=== PATIENT | female | born 1995 | race African-American/Black ===

== ENCOUNTER 2019-05-20 16:14 | Emergency (ER) | payer MEDICAID ==
[~2019-05-20] VITALS: Ht 167.6 cm; Wt 54.4 kg
[2019-05-20] MEDS ORDERED: OMEPRAZOLE20 M2 ORAL (16:25)
[2019-05-20] MEDS ORDERED: NORCO 5-325 TA1 EACH ORAL (16:25)
--- NOTE | 2019-05-20 16:38 | NUR ---
ED Nurse Note: came in with mother due to sharp epigastric pain with nausea x4 days. Pt reports that she went to [place] ED yesterday and pain remains after prescribed norco and ameprzole.
[2019-05-20 16:45] VITALS: BP 121/81
[2019-05-20 16:52] LABS: EOSINOPHILS % (AUTO) 1.7 % (0.0-3.0); HEMATOCRIT 35.7 % (37.0-47.0); HEMOGLOBIN 12.5 G/DL (12.0-16.0); LYMPHOCYTES % (AUTO) 18.3 % (20.0-45.0); MEAN CORPUSCULAR VOLUME 88 FL (80-99); MONOCYTES % (AUTO) 9.2 % (1.0-10.0); NEUTROPHILS % (AUTO) 69.8 % (45.0-75.0); PLATELET COUNT 183 K/UL (150-450); RED BLOOD COUNT 4.05 M/UL (4.20-5.40); RED CELL DISTRIBUTION WIDTH 10.8 % (11.6-14.8); WHITE BLOOD COUNT 7.7 K/UL (4.8-10.8)
[2019-05-20 16:55] LABS: APPEARANCE,URINE CLEAR; BILIRUBIN, URINE NEGATIVE (NEGATIVE); COLOR,URINE PALE YELLOW; GLUCOSE, URINE (UA) NEGATIVE (NEGATIVE); KETONES,URINE 4+ (NEGATIVE); LEUKOCYTE ESTERASE ,URINE NEGATIVE (NEGATIVE); NITRITE,URINE NEGATIVE (NEGATIVE); PH,URINE 6.5 (4.5-8.0); PROTEIN,URINE NEGATIVE (NEGATIVE); UROBILINOGEN,URINE NORMAL MG/DL (0.0-1.0)
[2019-05-20] MEDS ORDERED: Ketorolac 30mg Inj IV ONE (17:00)
[2019-05-20 17:06] LABS: ANION GAP 12 mmol/L (5-15); BLOOD UREA NITROGEN 9 mg/dL (7-18); CALCIUM 9.6 MG/DL (8.5-10.1); CARBON DIOXIDE 26 MMOL/L (21-32); CHLORIDE 105 MMOL/L (98-107); CREATININE 0.5 MG/DL (0.55-1.30); POTASSIUM 4.2 MMOL/L (3.5-5.1); SODIUM 142 MMOL/L (136-145)
[2019-05-20 17:08] LABS: ALANINE AMINOTRANSFERASE 17 U/L (12-78); ALBUMIN 4.1 G/DL (3.4-5.0); ALKALINE PHOSPHATASE 45 U/L (46-116); ASPARTATE AMINO TRANSFERASE 16 U/L (15-37); BILIRUBIN,TOTAL 0.9 MG/DL (0.2-1.0)
--- NOTE | 2019-05-20 18:46 | Emergency Room Report ---
History of Present Illness General Chief Complaint: Abdominal Pain Source: Patient Present Illness HPI 23-year-old female presents to the emergency department complaining of persistent 7 out of 10 severity retrosternal chest pain x4 days. Patient reports that she was worked up at [place] recently and was discharged with omeprazole and [place] which have not helped her symptoms. Denies Palpitations, LOC, AMS, dizziness, Changes in Vision, Sensation, paresthesias, or a sudden severe headache. Allergies: Coded Allergies: No Known Allergies (Unverified , 05/20/19) Patient History Past Medical History: see triage record Past Surgical History: none Pertinent Family History: none Last Menstrual Period: 05/17/2019 Reviewed Nursing Documentation: PMH: Agreed; PSxH: Agreed Nursing Documentation-PMH Past Medical History: No Stated History Review of Systems All Other Systems: negative except mentioned in HPI Physical Exam Vital Signs Date Time Temp Pulse Resp B/P (MAP) Pulse Ox O2 Delivery O2 Flow Rate FiO2 05/20/19 16:19 98.2 82 15 121/81 (94) 98 Room Air Sp02 EP Interpretation: reviewed, normal General Appearance: no apparent distress, alert, GCS 15, non-toxic, thin Head: normocephalic, atraumatic Eyes: bilateral eye normal inspection, bilateral eye PERRL ENT: hearing grossly normal, normal voice Neck: full range of motion Respiratory: chest non-tender, lungs clear, normal breath sounds, no respiratory distress, no accessory muscle use, no wheezing, speaking full sentences Cardiovascular #1: regular rate, rhythm, no edema, normal capillary refill Gastrointestinal: normal bowel sounds, non tender, soft, non-distended, no guarding Rectal: deferred Musculoskeletal: back normal, gait/station normal, normal range of motion, non- tender Neurologic: alert, oriented x3, responsive, motor strength/tone normal, sensory intact, speech normal, grossly normal Psychiatric: judgement/insight normal Lymphatic: no adenopathy Medical Decision Making PA Attestation Dr. White is my supervising Physician whom patient management has been discussed with. Diagnostic Impression: Primary Impression: Chest pain in adult ER Course Pt. presents to the ED c/o [ ] Ddx considered but are not limited to [place], pneumonia, contusion, costochondritis , PE, ACS, Shoulder strain, Chest wall contusion. aortic dissection. Vital signs: are WNL, pt. is afebrile H&PE are most consistent with [ ] ORDERS: - EK bpm -CBC -CMP -CK-MB -Troponins CXR: ED INTERVENTIONS: - PT. placed on cardiac monitoring. DISCHARGE: At this time pt. is stable for d/c to home. Will provide printed patient care instructions, and any necessary prescriptions. Care plan and follow up instructions have been discussed with the patient prior to discharge. EKG Diagnostic Results EP Interpretation: Dr. White Rate: normal - 70bpm Rhythm: NSR ST Segments: no acute changes ASA given to the pt in ED: No PA Scribe Text Sarahi GARCIA-Ernesto Last Vital Signs Date Time Temp Pulse Resp B/P (MAP) Pulse Ox O2 Delivery O2 Flow Rate FiO2 05/20/19 17:02 98.2 05/20/19 16:45 82 15 Room Air 05/20/19 16:45 121/81 98 Disposition: HOME, SELF-CARE Condition: Stable Scripts Naproxen* (NAPROXEN*) 375 Mg Tablet. 375 MG ORAL TWICE A DAY for 7 Days, #14 TAB ! Do Not Start until you have finished/no longer taking colchicine Prov: Sarahi Irene 05/20/19 Colchicine (Colchicine) 0.6 Mg Capsule 0.6 MG PO DAILY for chest pain, #3 CAP Prov: Sarahi Irene 05/20/19 Referrals: [facility]ERR[facility] (PCP) Patient Instructions: Nonspecific Chest Pain, Pericarditis Additional Instructions: Take medications as directed. Follow up with a Primary Care Provider in 3-5 days, even if your symptoms have resolved. Return sooner to ED if new symptoms occur, or current symptoms become worse. - Please note that this Emergency Department Report was dictated using CH[employer] php developer technology software, occasionally this can lead to erroneous entry secondary to interpretation by the dictation equipment. Sarahi Irene May 20, 2019 18:46
--- NOTE | 2019-05-20 19:09 | NUR ---
HAND-OFF: Report given to JESUS Dye.
[2019-05-20] MEDS ORDERED: NAPROXEN375 M2 ORAL (19:49)
[2019-05-20] MEDS ORDERED: COLCHICINE0.6 M1 PO (19:49)
[2019-05-20 19:52] VITALS: BP 121/81
--- NOTE | 2019-05-20 19:52 | NUR ---
ED Nurse Note: Patient cleared for discharge, verbalized understanding of discharge instructions, ID band removed, IV removed. Patient is A&Ox4, ambulatory with steady gait. Patient departed with all belongings accompanied by her mother.
== END 2019-05-20 19:59 | disposition home or self-care (01) ==
LOC: EMR 16:44
DX: R07.9 Chest pain, unspecified (principal)
CPT/HCPCS: 36415; 80053; 81003; 81025; 82553; 83690; 84484; 85025; 85651; 86140; 93005; 96374; 99284; J1885

== ENCOUNTER 2019-05-22 16:43 | Emergency (ER) | payer MEDICAID ==
[~2019-05-22] VITALS: Ht 160 cm; Wt 54.4 kg
[~2019-05-22 16:43] MED LIST: COLCHICINE0.6 M1 PO; NAPROXEN375 M2 ORAL; NORCO 5-325 TA1 EACH ORAL; OMEPRAZOLE20 M2 ORAL
--- NOTE | 2019-05-22 17:08 | NUR ---
ED Nurse Note: PT WALKED IN TO ER TODAY FROM HOME. AOX4. PT C/O ONGOING UPPER MEDIAL ABDOMINAL PAIN, 04/25. PT WAS SEEN AT [facility] 2 DAYS AGO FOR THE SAME SYMPTOMS BUT RETURNS TODAY WITH SAME COMPLAINT. PT STATES SHE HAS BEEN PRESCRIBED NORCO AND OMEPRAZOLE BUT MEDS HAVE NOT RELIEVED SYMPTOMS. ON ASSESSMENT, ABDOMEN IS SOFT AND NONDISTENDED, NONTENDER TO PALPATION. ACTIVE BOWEL SOUNDS IN ALL QUADRANTS. PT DENIES NAUSEA, VOMITING, OR DIARRHEA.
[2019-05-22 17:11] VITALS: BP 112/78
[2019-05-22] MEDS ORDERED: Isovue-300 100ml vial INJ PRN (17:15)
[2019-05-22] MEDS ORDERED: Mylanta II UD 30ml ORAL ONE (17:15)
[2019-05-22] MEDS ORDERED: Lidocaine 2% Visc 15ml soln ORAL ONE (17:15)
[2019-05-22] MEDS ORDERED: Dicyclomine HCl 10mg/5ml oral soln ORAL ONE (17:15)
--- NOTE | 2019-05-22 17:18 | NUR ---
ED Nurse Note: PT VERBALIZES SHE IS RECONSIDERING ER VISIT AND DOES NOT WANT BLOOD DRAWN OR CT. DR MCKEON NOTIFIED WHO STATES HE WILL SPEAK WITH THE PATIENT SHORTLY.
--- NOTE | 2019-05-22 17:21 | NUR ---
ED Nurse Note: DR MCKEON AT BEDSIDE TO SPEAK WITH PT. AFTER DISCUSSION, PT AGREES TO HAVING CT SCAN DONE. PT REFUSING ALL MEDICATIONS EXCEPT FLUIDS, VISCOUS LIDO AND PEPCID. PREVIOUS VISIT'S LAB RESULTS USED FOR CT PER PT'S REQUEST. DR MCKEON OKAY WITH USING OLD LAB RESULTS.
--- NOTE | 2019-05-22 17:37 | NUR ---
ED Nurse Note: PT TO CT VIA WHEELCHAIR.
--- NOTE | 2019-05-22 18:23 | Diagnostic Imaging Report ---
EXAM: CT Abdomen and Pelvis With Intravenous Contrast CLINICAL HISTORY: ABD PAIN TECHNIQUE: Axial computed tomography images of the abdomen and pelvis with intravenous contrast. CTDI is 10.75 mGy and DLP is 529 mGy-cm. One or more of the following dose reduction techniques were used: automated exposure control, adjustment of the mA and/or kV according to patient size, use of iterative reconstruction technique. Coronal and sagittal reformatted images were created and reviewed. COMPARISON: No relevant prior studies available. FINDINGS: Lung bases: Unremarkable. No mass. No consolidation. ABDOMEN: Liver: Unremarkable. No mass. Gallbladder and bile ducts: Unremarkable. No calcified stones. No ductal dilation. Pancreas: Unremarkable. No mass. No ductal dilation. Spleen: Unremarkable. No splenomegaly. Adrenals: Unremarkable. No mass. Kidneys and ureters: Unremarkable. No solid mass. No hydronephrosis. Stomach and bowel: Scattered fluid-filled loops of small bowel without dilation or evidence for obstruction. Slight colonic wall thickening within the proximal transverse segment which may be related to peristalsis, nonspecific. PELVIS: Appendix: No findings to suggest acute appendicitis. Bladder: Unremarkable. No mass. Reproductive: Unremarkable as visualized. ABDOMEN and PELVIS: Intraperitoneal space: Mild pelvic free fluid. No free air. Bones/joints: No acute fracture. No dislocation. Soft tissues: Unremarkable. Vasculature: Unremarkable. No abdominal aortic aneurysm. Lymph nodes: Unremarkable. No enlarged lymph nodes. Tubes, lines and devices: Retroverted uterus with intravaginal ring device incidentally noted. IMPRESSION: 1. Diffuse fluid-filled loops of small bowel without dilation or evidence for obstruction. Nonspecific gastroenteritis could be considered. Slight wall thickening also noted at the proximal transverse colon likely related to peristalsis though mild inflammatory changes could have similar appearance. 2. Normal appendix. No evidence for bowel obstruction. No evidence for obstructive uropathy. 3. Mild pelvic free fluid which may be reactive or physiologic.
[2019-05-22] MEDS ORDERED: RANITIDINE HCL150 MG ORAL (18:48)
[2019-05-22] MEDS ORDERED: MAGNESIUM CITR296 M1 PO (18:48)
[2019-05-22] MEDS ORDERED: COLACE100 MG ORAL (18:48)
--- NOTE | 2019-05-22 18:51 | NUR ---
ED Nurse Note: PT LAYING PEACEFULLY IN BED IN NAD. AOX4. PRESCRIPTIONS AND DISCHARGE PAPERWORK EXPLAINED TO PT. PT VERBALIZES UNDERSTANDING AND ALL QUESTIONS ANSWERED. PRESCRIPTIONS SENT ELECTRONICALLY TO PT'S PHARMACY. DISCHARGE PAPERWORK GIVEN TO PT, IV AND ID WRISTBAND REMOVED. PT WALKED OUT OF ER WITH STEADY GAIT AND ALL BELONGINGS ACCOMPANIED BY MOTHER.
[2019-05-22 18:52] VITALS: BP 116/74
[2019-05-22] MEDS ORDERED: Acetaminophen 500mg (ES) tab ORAL ONE (19:00)
--- NOTE | 2019-05-22 23:19 | Emergency Room Report ---
History of Present Illness General Chief Complaint: Abdominal Pain Source: Patient Present Illness HPI 23-year-old female presents ED for evaluation. Complaining of abdominal pain. States pain is epigastric radiating to her chest. Worse with eating. 7 out of 10, sharp. Denies shortness of breath. Was seen at [place] recently and was told that she has gastritis and prescribed omeprazole. States it was not helping. Was seen in ED here a few days ago and had cardiac work-up and was discharged with pain meds. States none of it is helping. No other aggravating relieving factors. Denies any other associated symptoms Allergies: Coded Allergies: No Known Allergies (Unverified , 05/20/19) Patient History Past Medical History: none Past Surgical History: none Pertinent Family History: none Social History: Denies: smoking, alcohol use, drug use Last Menstrual Period: 05/20/2019 Now: No Immunizations: UTD Reviewed Nursing Documentation: PMH: Agreed; PSxH: Agreed Nursing Documentation-PMH Past Medical History: No Stated History Review of Systems All Other Systems: negative except mentioned in HPI Physical Exam Vital Signs Date Time Temp Pulse Resp B/P (MAP) Pulse Ox O2 Delivery O2 Flow Rate FiO2 05/22/19 16:52 98.8 83 19 113/75 (88) 97 Room Air Sp02 EP Interpretation: reviewed, normal General Appearance: no apparent distress, alert, GCS 15, non-toxic Head: normocephalic, atraumatic Eyes: bilateral eye normal inspection, bilateral eye PERRL ENT: hearing grossly normal, normal pharynx, no angioedema, normal voice Neck: full range of motion, supple/symm/no masses Respiratory: chest non-tender, lungs clear, normal breath sounds, speaking full sentences Cardiovascular #1: regular rate, rhythm, no edema Cardiovascular #2: 2+ carotid (R), 2+ carotid (L), 2+ radial (R), 2+ radial (L) , 2+ dorsalis pedis (R), 2+ dorsalis pedis (L) Gastrointestinal: normal bowel sounds, soft, non-distended, no guarding, no rebound, tenderness - epigastric Rectal: deferred Genitourinary: normal inspection, no CVA tenderness Musculoskeletal: back normal, gait/station normal, normal range of motion, non- tender Neurologic: alert, oriented x3, responsive, motor strength/tone normal, sensory intact, speech normal Psychiatric: judgement/insight normal, memory normal, mood/affect normal, no suicidal/homicidal ideation Reflexes: 3+ bicep (R), 3+ bicep (L), 3+ tricep (R), 3+ tricep (L), 3+ knee (R) , 3+ knee (L) Lymphatic: no adenopathy Medical Decision Making Diagnostic Impression: Primary Impression: Constipation Qualified Codes: K59.00 - Constipation, unspecified Additional Impression: Gastritis Qualified Codes: K29.00 - Acute gastritis without bleeding ER Course Hospital Course 23-year-old F presents to ED with abdominal pain Differential diagnosis includes-appendicitis, cholecystitis, small bowel obstruction, gastritis, Clinical course Patient placed on stretcher. After initial history and physical I ordered CT, pepcid, GI cocktail She was here 2 days ago with unremarkable labs and negative CT A/P - distended loops consistent with gastroenteritis. also significant fecal impaction noted Discussed findings with patient. Explained that constipation can be a significant cause of pain in several patients. Can also explain her symptoms of feeling full and having reflux symptoms. Will discharge with zantac, stool softeners. We will also provide GI referrals. Safe for discharge with close outpatient follow-up I feel this is a highly complex case requiring extensive working including EKG/ Rhythm strip, Xray/CT/US, Blood/urine lab work, repeat exams while in ED, and administration of strong opiates/narcotics for pain control, admission to hospital or close patient follow up. Diagnosis - constipation, gastritis Stable and discharged to home with Rx zantac, Mag citrate, Colace. instructed on high-fiber diet. Followup with PMD. Return to ED if symptoms recur or worsen CT/MRI/US Diagnostic Results CT/MRI/US Diagnostic Results : Imaging Test Ordered: CT A/P Impression IMPRESSION: 1. Diffuse fluid-filled loops of small bowel without dilation or evidence for obstruction. Nonspecific gastroenteritis could be considered. Slight wall thickening also noted at the proximal transverse colon likely related to peristalsis though mild inflammatory changes could have similar appearance. 2. Normal appendix. No evidence for bowel obstruction. No evidence for obstructive uropathy. 3. Mild pelvic free fluid which may be reactive or physiologic. Last Vital Signs Date Time Temp Pulse Resp B/P (MAP) Pulse Ox O2 Delivery O2 Flow Rate FiO2 05/22/19 18:52 98.2 74 15 116/74 100 Room Air Status: improved Disposition: HOME, SELF-CARE Condition: Stable Scripts Magnesium Citrate (MAGNESIUM CITRATE) 296 Ml Solution 150 ML PO DAILY, #296 ML Prov: Idris Richter MD 05/22/19 Docusate Sodium* (COLACE*) 100 Mg Capsule 100 MG ORAL THREE TIMES A DAY, #30 CAP Prov: Idris Richter MD 05/22/19 Ranitidine Hcl* (ZANTAC*) 150 Mg Tablet 150 MG ORAL TWICE A DAY, #30 TAB Prov: Idris Richter MD 05/22/19 Referrals: Gallito Barajas MD Patient Instructions: Gastritis, Adult, [id number], Constipation, Adult, Easy -to-Read Idris Richter MD May 22, 2019 23:19
== END 2019-05-22 18:57 | disposition home or self-care (01) ==
LOC: EMR 17:30
DX: K29.00 Acute gastritis without bleeding (principal); K59.00 Constipation, unspecified
CPT/HCPCS: 74177; 96374; 99284; Q9967; S0028

== ENCOUNTER 2020-07-27 10:08 | Emergency (ER) | payer MEDICAID ==
[~2020-07-27] VITALS: Ht 162.6 cm; Wt 52.2 kg
[~2020-07-27 10:08] MED LIST changes: +COLACE100 MG ORAL; +MAGNESIUM CITR296 M1 PO; +RANITIDINE HCL150 MG ORAL
[2020-07-27 10:30] VITALS: BP 132/83
--- NOTE | 2020-07-27 10:30 | NUR ---
ED Nurse Note: Patient presented in ER from home due to pain in her vagina, stated there is one big blister that really painful. Patient has same sexual partner over a year. Patient AAO x4, VSS at this time.
--- NOTE | 2020-07-27 10:39 | Emergency Room Report ---
History of Present Illness General Chief Complaint: Female Urogenital Problems Source: Patient Present Illness [facility] Disclaimer: Please note that this report is being documented using DRAGON technology. This can lead to erroneous entry secondary to incorrect interpretation by the dictating instrument. HPI: Is a 24-year-old female presenting for vaginal discomfort. Patient reports 1 day of burning discomfort over the labia which he describes as a "canker sore" over the labia. Denies vaginal bleeding or vaginal discharge. LMP June 16. Reports unprotected sexual intercourse though is monogamous with one partner. Denies dark or cloudy or malodorous urine. Denies flank pain, abdominal pain, nausea, vomiting, diarrhea. She felt feverish and fatigue several days ago but this resolved after approximately 24 hours. Recently tested negative for COVID- 19. No other symptoms at this time. PMH: Denies PSH: Reviewed Allergies: Denies Social Hx: Denies drug or alcohol abuse Allergies: Coded Allergies: No Known Allergies (Unverified , 05/20/19) COVID-19 Screening Contact w/high risk pt: No Experienced COVID-19 symptoms?: No COVID-19 Testing performed FRONT DESK CLERK: No Patient History Last Menstrual Period: 06/20/20 Now: No Nursing Documentation-PMH Past Medical History: No Stated History Review of Systems All Other Systems: negative except mentioned in HPI Physical Exam Vital Signs Date Time Temp Pulse Resp B/P (MAP) Pulse Ox O2 Delivery O2 Flow Rate FiO2 07/27/20 10:21 98.2 94 18 132/83 (99) 95 Room Air General: Awake and alert, no acute distress HEENT: NC/AT. EOMI. Resp: Normal work of breathing Abdomen: Soft, nontender, nondistended. : There is a 2 x 2 centimeter circulated ulcerative lesion over the right labia. It is rimmed and somewhat ulcerated with dried blood in the center. No active purulent drainage. Cannot appreciate significant fluctuance. Speculum exam shows thin white vaginal discharge. No other lesions appreciated. No inguinal lymphadenopathy. Skin: Intact. No abrasions, laceration or rash over the exposed skin MSK: Normal tone and bulk. Moving all extremities. No obvious deformity. Neuro: Awake and alert. Mentating appropriately Medical Decision Making Diagnostic Impression: Primary Impression: Chancroid Additional Impression: Genital lesion, female ER Course Is a 24-year-old female presenting for evaluation of genital lesion. Differential includes was not limited to genital ulcer, chancroid, l ymphogranuloma venereum, syphilis, HSV, genital wart, cervicitis, Bartholin cyst/abscess among others. Patient's presentation is most consistent with either Bartholin abscess, chancroid or syphilis though is difficult to discriminate between these. Believe is likely a chancroid. I do not feel fluctuance to suggest an abscess and the patient is refusing incision and draining at this time opting to be treated with antibiotics first and obtain outpatient STD testing. She is a student at [employer] and will go see their health clinic later. She would also be referred to [facility]. Patient received ceftriaxone, azithromycin and intramuscular penicillin. She will be discharged on ciprofloxacin. Instructed her that if the lesion were to enlarge or change in any way that she should return for possible I&D. She understands and agrees with this treatment plan will be discharged home. Laboratory Tests Test 07/27/20 10:32 Urine Color Yellow Urine Appearance Slightly cloudy Urine pH 6 (4.5-8.0) Urine Specific [place] 1.020 (1.005-1.035) Urine Protein 1+ (NEGATIVE) H Urine Glucose (UA) Negative (NEGATIVE) Urine Ketones Negative (NEGATIVE) Urine Blood 3+ (NEGATIVE) H Urine Nitrite Negative (NEGATIVE) Urine Bilirubin Negative (NEGATIVE) Urine Urobilinogen Normal MG/DL (0.0-1.0) Urine Leukocyte Esterase 1+ (NEGATIVE) H Urine RBC 2-4 /HPF (0 - 2) H Urine WBC 2-4 /HPF (0 - 2) Urine Squamous Epithelial Cells Few /LPF (NONE/OCC) Urine Bacteria Many /HPF (NONE) H Urine HCG, Qualitative Negative (NEGATIVE) Microbiology Date/Time Source Procedure Growth Status 07/27/20 10:50 Vaginal Wet Prep - Final Complete Last Vital Signs Date Time Temp Pulse Resp B/P (MAP) Pulse Ox O2 Delivery O2 Flow Rate FiO2 07/27/20 10:21 98.2 94 18 132/83 (99) 95 Room Air Disposition: HOME, SELF-CARE Condition: Stable Scripts Ciprofloxacin Hcl* (CIPROFLOXACIN HCL*) 500 Mg Tablet 500 MG ORAL Q12H for 3 Days, #6 TAB 0 Refills Prov: Wilner White MD 07/27/20 Wilner White MD Jul 27, 2020 10:39
[2020-07-27 10:52] LABS: APPEARANCE,URINE SLIGHTLY CLOUDY; BILIRUBIN, URINE NEGATIVE (NEGATIVE); COLOR,URINE YELLOW; GLUCOSE, URINE (UA) NEGATIVE (NEGATIVE); KETONES,URINE NEGATIVE (NEGATIVE); LEUKOCYTE ESTERASE ,URINE 1+ (NEGATIVE); NITRITE,URINE NEGATIVE (NEGATIVE); PH,URINE 6 (4.5-8.0); PROTEIN,URINE 1+ (NEGATIVE); UROBILINOGEN,URINE NORMAL MG/DL (0.0-1.0)
--- NOTE | 2020-07-27 10:52 | NUR ---
ED Nurse Note: pelvic exam done by Stephon Kay. Wet mount prep sent to lab
[2020-07-27] MEDS ORDERED: Lidocaine 1% MPF 10mg/ml 5ml INJ ONE (11:15)
[2020-07-27] MEDS ORDERED: Bicillin LA 2.4MMU/4ML SYR IM SCH (11:45)
[2020-07-27] MEDS ORDERED: CIPROFLOXACIN500 M2 ORAL (11:47)
[2020-07-27] MEDS ORDERED: Bicillin LA 1.2MMU/2ML SYR IM SCH (12:00)
[2020-07-27 12:01] VITALS: BP 132/83
--- NOTE | 2020-07-27 12:02 | NUR ---
ED Nurse Note: Pt cleared by health care Provider for discharge. DC instructions/prescription was given and explained to pt and verbalized understanding of teachings. All medical deviecs such as ID band removed. Pt is AAO x4, ambulatory and left with all personal belongings.
== END 2020-07-27 12:02 | disposition home or self-care (01) ==
LOC: EMR 10:41
DX: A57 Chancroid (principal); N89.8 Other specified noninflammatory disorders of vagina
CPT/HCPCS: 81003; 81025; 87086; 87210; 96372; J0561; J0696; Z7502; 99283